=== PATIENT | male | born 1970 | race Caucasian/White ===

== ENCOUNTER 2016-12-07 20:43 | Emergency (ER) | payer OTHER ==
[~2016-12-07] VITALS: Ht 193 cm; Wt 104.0 kg
[~2016-12-07 20:43] MED LIST: LEVA500T33 PO; Z.0.NO CURRENT MEDS
[2016-12-07 20:52] VITALS: BP 124/85; PULSE 73; RESP 15; O2SAT 98
[2016-12-07] MEDS ORDERED: PROPARACAINE HCL 0.5% OPHT SOLN 15 ML BTL EACH EYE ONE (21:00)
--- NOTE | 2016-12-07 21:10 | PD ---
HPI Chief Complaint: Eye Problems/Injury Time Seen by Provider: 21:08 Travel History International Travel<30 days: No Contact w/Intl Traveler<30days: No Traveled to known affect area: No History of Present Illness HPI 46-year-old white male presents to emergency Department with complaints of left eye pain after getting poked in the eye with a stick. 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 He was not wearing glasses. He is up-to-date with immunizations. Positive for body sensation, Mild pain. No diplopia. No blurred vision. No tearing or mucoid drainage. No glasses or contacts. PFSH Past Medical History Medical History: Denies Significant Hx Diminished Hearing: No Immunizations Current: Yes Tetanus Vaccination: < 5 Years Past Surgical History Surgical History: No Previous Surgery Social History Alcohol Use: No Tobacco Use: No Substance Use: No Allergies-Medications (Allergen,Severity, Reaction): Coded Allergies: Penicillin (Verified Allergy, Mild, UNKNOWN, 12/07/16) Reported Meds & Prescriptions Reported Meds & Active Scripts Active Levaquin (Levofloxacin) 500 Mg Tab 500 Mg PO DAILY Reported No Current Meds (Miscellaneous Medication) Misc Review of Systems Except as stated in HPI: all other systems reviewed are Neg Eyes: Positive: Blurred Vision, Redness, Foreign Body Sensation, Pain, No: Diploplia, Photophobia, Drainage, Tearing, Visual changes Physical Exam Narrative GENERAL: This is a well-nourished, well-developed patient, in no apparent distress. SKIN: No rashes, ecchymoses or lesions. Warm and dry. HEAD: Atraumatic. Normocephalic. EYES: PERRL, EOMI, no discharge or injection in the right eye. The left eye is slightly injected. Lids are flipped and no foreign body seen. Fluorescein stain reveals a superficial corneal abrasion at the 9:00 hour as well as a corneal abrasion at the 12:00 hour outside of the visual field. The abrasion at the 12:00 hour is a circular punch type abrasion. No scleral icterus. EARS: Clear NOSE: Nasal turbinates appear normal. THROAT: Mucosa pink and moist. Airway patent. NECK: Trachea midline. supple, moves head freely. LUNGS: Clear to auscultation. CV: Regular in rhythm. ABDOMEN: Soft nontender. EXT: No clubbing cyanosis or edema. Data Data Last Documented VS Vital Signs Date Time Temp Pulse Resp B/P Pulse Ox O2 Delivery O2 Flow Rate FiO2 12/07/16 20:52 73 15 124/85 98 Orders Proparacaine 0.5% Opth Soln (Alcaine 0.5 (12/07/16 21:00) Tobramycin 0.3% Opth Oint (Tobrex 0.3% O (12/07/16 21:30) MDM Medical Decision Making Medical Screen Exam Complete: Yes Emergency Medical Condition: Yes Medical Record Reviewed: Yes Differential Diagnosis MDM: High Differential diagnoses: Acute conjunctivitis (bacterial, viral, allergic, traumatic), glaucoma, iritis, traumatic globe injury, foreign body, corneal abrasion Narrative Course Tobramycin ophthalmic ointment is instilled in left eye. Visual acuity noted on the nursing chart. This is left eye corneal abrasion Diagnosis Primary Impression: Injury of conjunctiva and corneal abrasion of left eye w/o FB Qualified Code: S05.02XA - Injury of conjunctiva and corneal abrasion of left eye w/o FB, initial encounter Patient Instructions: General Instructions Additional Instructions: Rest. Wash eyelashes with baby shampoo twice daily. One ribbon of tobramycin to the left eye 4 times daily. No rubbing. 3 Advil every 6 hours for pain. 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 Return to the ER for problems Med/Other Pt SpecificInfo: Prescription(s) given Disposition: 01 DISCHARGE HOME Condition: Stable Pieter Juarez Dec 07, 2016 21:10
[2016-12-07] MEDS ORDERED: TOBRAMYCIN SULFATE 0.3% OPTH OINT 3.5 GM TUBE LEFT EYE ONE (21:30)
== END 2016-12-07 22:16 | disposition home or self-care (01) ==
LOC: NEPK 20:43
DX: S05.02XA Injury of conjunctiva and corneal abrasion without foreign body, left eye, initial encounter (principal); Z88.0 Allergy status to penicillin; W22.8XXA Striking against or struck by other objects, initial encounter; Z79.899 Other long term (current) drug therapy
CPT/HCPCS: 99283